=== PATIENT | male | born 2000 | race Caucasian/White ===

== ENCOUNTER → 2022-12-19 | Outpatient (CLI) | payer BC, SELFPAY ==
[2022-12-19 15:16] LABS: Absolute Lymphocyte Count 2.04 X10^3/uL (0.83-4.51); Absolute Neutrophil Count 8.1 X10^3/uL (2.0-7.7); Basophil# 0.07 X10^3/uL; Basophil% 0.6 % (0-1); Hematocrit 43.8 % (40-54); Hemoglobin 14.7 g/dL (13.0-16.5); Lymphocyte # 2.04 X10^3/ul (0.83-4.51); Lymphocyte % 18.8 % (19-41); Mean Corp Hgb Conc 33.6 g/dL (32-36); Mean Corpuscular Hgb 30.4 pg (27.0-32.0); Mean Corpuscular Volume 90.5 fL (80-94); Mean Platelet Vol. 12.9 fl (6.2-12.0); Monocyte# 0.61 X10^3/uL; Monocyte% 5.6 % (0-10); NRBC Flagged by Analyzer 0 % (0-5); Neutrophil % 74.5 % (47-70); POSITIVE COUNT YES; Red Blood Count 4.84 M/mm3 (4.6-6.2); White Blood Count 10.9 K/mm3 (4.4-11.0)
[2022-12-19 15:19] LABS: ALB/GLOB Ratio 1.2 RATIO (0.9-2.4); AST(SGOT) 27 U/L (15-37); Alanine Aminotransfer ALT/SGPT 27 U/L (16-61); Albumin, Serum 4.2 g/dL (3.2-5.0); Alkaline Phosphatase 54 U/L (45-117); Anion Gap 8 (5-15); BUN 15 mg/dL (7-18); BUN/Creat Ratio 15.1 RATIO (10-20); Calcium,Total 9.1 mg/dL (8.5-10.1); Chloride 105 mmol/L (98-107); Creatinine, Serum 0.99 mg/dL (0.70-1.30); EST Glomerular Filtration Rate 99 mL/min (>60); Est Glom Filt Rate - Afr Amer 120 mL/min (>60); Globulin 3.5 g/dL (2.2-4.2); Glucose 95 mg/dL (74-106); Potassium 4.2 mmol/L (3.5-5.1); Protein, Total 7.7 g/dL (6.4-8.2); Sodium Level 140 mmol/L (136-145)
[2022-12-19 16:06] LABS: Platelet Estimate SLT DEC (ADEQ)
== END | disposition home or self-care (01) ==
PROVIDERS: Visit Provider Nurse Practitioner Family
DX: R53.82 Chronic fatigue, unspecified (principal); R14.0 Abdominal distension (gaseous); R51.9 Headache, unspecified; M54.2 Cervicalgia; R68.89 Other general symptoms and signs
CPT/HCPCS: 80053; 84402; 84403; 85025; 86644; 86645; 86665

== ENCOUNTER → 2023-02-07 | Outpatient (CLI) | payer BC, SELFPAY ==
[2023-02-07 12:49] LABS: Absolute Lymphocyte Count 2.72 X10^3/uL (0.83-4.51); Absolute Neutrophil Count 4.4 X10^3/uL (2.0-7.7); Basophil# 0.07 X10^3/uL; Basophil% 0.9 % (0-1); Hematocrit 49.4 % (40-54); Hemoglobin 16.2 g/dL (13.0-16.5); Lymphocyte # 2.72 X10^3/ul (0.83-4.51); Lymphocyte % 34.3 % (19-41); Mean Corp Hgb Conc 32.8 g/dL (32-36); Mean Corpuscular Hgb 30.1 pg (27.0-32.0); Mean Corpuscular Volume 91.7 fL (80-94); Monocyte# 0.74 X10^3/uL; Monocyte% 9.3 % (0-10); NRBC Flagged by Analyzer 0 % (0-5); Neutrophil # 4.37 X10^3/uL (2.7-7.7); Neutrophil % 55.1 % (47-70); Platelet Count 236 K/mm3 (150-450); RBC Distribution Width CV 13.1 % (11.6-14.6); RBC Distribution Width SD 43.8 fl (35.1-43.9); Red Blood Count 5.39 M/mm3 (4.6-6.2); White Blood Count 7.9 K/mm3 (4.4-11.0)
[2023-02-07 13:29] LABS: ALB/GLOB Ratio 1.2 RATIO (0.9-2.4); AST(SGOT) 16 U/L (15-37); Alanine Aminotransfer ALT/SGPT 28 U/L (16-61); Albumin, Serum 4.2 g/dL (3.2-5.0); Alkaline Phosphatase 69 U/L (45-117); Anion Gap 6 (5-15); BUN 17 mg/dL (7-18); BUN/Creat Ratio 17.4 RATIO (10-20); Calcium,Total 9.8 mg/dL (8.5-10.1); Chloride 107 mmol/L (98-107); Creatinine, Serum 0.98 mg/dL (0.70-1.30); EST Glomerular Filtration Rate 101 mL/min (>60); Est Glom Filt Rate - Afr Amer 122 mL/min (>60); Ferritin 65 ng/mL (26-388); Globulin 3.5 g/dL (2.2-4.2); Glucose 82 mg/dL (74-106); Protein, Total 7.7 g/dL (6.4-8.2); Sodium Level 140 mmol/L (136-145)
[2023-02-16 22:10] LABS: Testosterone, % Free 4.09 % (1.50-4.20); Testosterone, Free 24.09 ng/dL (5.00-21.00); Testosterone, Total 589 ng/dL (264-916)
== END | disposition home or self-care (01) ==
LOC: LABSPEC 12:37
DX: A68.1 Tick-borne relapsing fever (principal); R53.82 Chronic fatigue, unspecified; B60.00 Babesiosis, unspecified; R51.9 Headache, unspecified; R53.81 Other malaise; R06.02 Shortness of breath
CPT/HCPCS: 80053; 82627; 82728; 84402; 84403; 85025; 82626

== ENCOUNTER → 2023-02-13 | Outpatient (CLI) | payer BC, SELFPAY ==
--- NOTE | 2023-02-13 09:00 | EKG12_ITS ---
Test Reason : PALPS Blood Pressure : / mmHG Vent. Rate : 059 BPM Atrial Rate : 059 BPM P-R Int : 126 ms QRS Dur : 084 ms QT Int : 358 ms P-R-T Axes : 015 067 054 degrees QTc Int : 354 ms Sinus bradycardia Otherwise normal ECG Confirmed by RERE BROWNE, MOISES ([id number]), assistant film editor VARUN ORTIZ ([id number]) on 02/14/2023 5:57:32 AM Referred By: EYAL REYES Confirmed By:MOISES JERNIGAN MD
== END | disposition home or self-care (01) ==
LOC: PSN 08:54
DX: R00.2 Palpitations (principal)
CPT/HCPCS: 93005

== ENCOUNTER 2023-03-05 16:01 | Emergency (ER) | payer BC, SELFPAY ==
[2023-03-05 16:03] VITALS: BP 121/89; PULSE 70; RESP 16; TEMP 36.7; O2SAT 100; BMI 28.2
--- NOTE | 2023-03-05 18:20 | EX.ED.GUMALE ---
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 Patient states that he has had right lower back pain that is been muscle skeletal over the last week. Patient states that the lower back hurts worse with ambulation, twisting, as well as worse in the morning. Patient states that last evening around 5 PM, his right testicle started hurting. He denies any difficulty urinating. Patient denies any nausea or vomiting. Patient's pain is on his left lower back, pain to the right testicle. No fever or chills. PFSH <VIDHYA Pérez - Last Filed: 03/05/23 20:03> [facility] Medical History (Updated 03/05/23 @ 20:03 by VIDHYA Pérez) Tick-borne disease Home Medications azithromycin 250 mg tablet 250 mg PO DAILY 03/05/23 [History Last Taken Unknown] Allergy/AdvReac Type Severity Reaction Status Date / Time No Known Allergies Allergy Verified 03/05/23 16:02 Social History (Updated 03/05/23 @ 17:28 by Rita Lu) household members: family housing: house Smoking Status: Never smoker ROS <VIDHYA Pérez - Last Filed: 03/05/23 20:03> ROS ED ROS Narrative Constitutional: Negative for fever, chills, weight loss, weakness Eyes: Negative for vision loss, vision change, double vision ENT: Negative for any sore throat, ear pain, congestion Cardiovascular: Negative for any chest pain, tightness, palpitations Respiratory: Negative for any cough, sputum production, hemoptysis, dyspnea, dyspnea on exertion, orthopnea Gastrointestinal: Negative for any abdominal pain, nausea, vomiting, diarrhea, constipation, blood in stool, blood in vomit : Negative for any urinary frequency, dysuria, retention, blood in urine. Positive for right testicular pain Muscle skeletal: Negative for any myalgias, arthralgias, neck pain, positive for left lower back pain Neurological: Negative for any headache, syncope, paresthesias, dizziness Skin: Negative for any rashes, lumps, itching, abrasions, lacerations Psychiatric: Negative for any depression, anxiety, stress, suicidal ideation, homicidal ideation Hematologic: Negative for any easy bruising, excessive bruising, easy bleeding Allergies: Negative for any eczema, hives, rash EXAM <VIDHYA Pérez - Last Filed: 03/05/23 20:03> Physical Exam Const Vital Signs: 03/05/23 16:03 03/05/23 20:14 Temperature 98.0 F Temperature Source Temporal Pulse Rate 70 Respiratory Rate 16 16 Blood Pressure 121/89 H Blood Pressure Mean 99 Pulse Ox 100 Oxygen Delivery Method Room Air <Dr. Joe Sosa MD - Last Filed: 03/05/23 20:41> Physical Exam Const Vital Signs: 03/05/23 16:03 03/05/23 20:14 Temperature 98.0 F Temperature Source Temporal Pulse Rate 70 Respiratory Rate 16 16 Blood Pressure 121/89 H Blood Pressure Mean 99 Pulse Ox 100 Oxygen Delivery Method Room Air MDM <VIDHYA Pérez - Last Filed: 03/05/23 20:03> MDM MDM Narrative Medical decision making narrative: Vital signs reviewed. HEET: Head normocephalic atraumatic, TMs clear bilaterally. Posterior pharynx is clear, moist mucous membranes. Nares clear bilaterally. Neck: Supple with no lymphadenopathy or tenderness. No signs of meningismus. Cardiac: Regular rate and rhythm no murmurs gallops or rubs, equal peripheral pulses bilaterally. Respiratory: Lungs clear to auscultation bilaterally. No chest tenderness. Abdomen: Soft, nontender, nondistended. No abdominal bruit or pulsatile masses. No hepatosplenomegaly Extremities: No peripheral edema, no signs of gross trauma or deformity. Active full range of motion of all extremities. Neuro: Cranial nerves II through XII intact, no focal neurological deficits. Skin: Clean dry and intact with no rash, purpura, petechiae, vesicles or pustules. Backs/flank: No CVA tenderness, no midline spinal tenderness, no deformity. Psych: Normal mood and affect. No SI, HI or acute psychosis. Testicular examination: Patient testicle exam was unremarkable, slight discomfort to the distal testicle, no pain along the epididymis. Patient has no unilateral swelling, no redness, no signs of cellulitis. Lab Data Labs: Laboratory Results - last 24 hr 03/05/23 18:34 Urine Color Yellow Urine Clarity Clear Urine pH 6.0 Ur Specific [place] 1.015 Urine Protein 15 H Urine Glucose (UA) Normal Urine Ketones 5 H Urine Occult Blood Negative Urine Nitrite Negative Urine Bilirubin Negative Urine Urobilinogen Normal Ur Leukocyte Esterase Negative Urine RBC 0 SEEN Urine WBC 0 SEEN Ur Squamous Epith Cells 0 SEEN Urine Bacteria 0 SEEN Urine Mucus 0 SEEN Radiography Diagnostic Testing: Clinical Impression(s) from Imaging Studies Testicular Ultrasound 03/05/23 18:24 IMPRESSION: No acute findings in the scrotum. Electronically Signed: Luis Alfredo Cameron MD at 19:41 EST , Treatment and Re-Evaluation Narrative: Patient appears generally well, patient appears nontoxic, vital signs are stable. Presenting to the emergency department left lower back pain, right testicular pain. Differential diagnosis includes testicular torsion, epididymitis, lumbar strain. Patient will receive a urinalysis concerning for any mucus or infection, patient will receive ultrasound with atrial flow of the testicle concerning for any emergent surgical emergency. Patient's urinalysis was negative for any infection, patient testicular ultrasound shows no abnormality within the scrotum. At this time, patient be diagnosed with lumbar strain. The physical examination showed no significant findings with the physical examination of the testicles, there is no evidence of any epididymitis, STD, lesions. There is no evidence of any torsion. At this time, patient continue take ibuprofen at home. Instructed to ice and elevate. All questions were answered, patient stable for discharge. <Dr. Joe Sosa MD - Last Filed: 03/05/23 20:41> [facility] Narrative Medical decision making narrative: Vital signs reviewed. HEET: Head normocephalic atraumatic, TMs clear bilaterally. Posterior pharynx is clear, moist mucous membranes. Nares clear bilaterally. Neck: Supple with no lymphadenopathy or tenderness. No signs of meningismus. Cardiac: Regular rate and rhythm no murmurs gallops or rubs, equal peripheral pulses bilaterally. Respiratory: Lungs clear to auscultation bilaterally. No chest tenderness. Abdomen: Soft, nontender, nondistended. No abdominal bruit or pulsatile masses. No hepatosplenomegaly Extremities: No peripheral edema, no signs of gross trauma or deformity. Active full range of motion of all extremities. Neuro: Cranial nerves II through XII intact, no focal neurological deficits. Skin: Clean dry and intact with no rash, purpura, petechiae, vesicles or pustules. Backs/flank: No CVA tenderness, no midline spinal tenderness, no deformity. Psych: Normal mood and affect. No SI, HI or acute psychosis. Testicular examination: Patient testicle exam was unremarkable, slight discomfort to the distal testicle, no pain along the epididymis. Patient has no unilateral swelling, no redness, no signs of cellulitis. I have personally performed a face to face assessment of the patient and have reviewed the ALINA Note. I performed a substantive portion of the visit including all aspects of the following. My ervin findings include: History is 27-year-old male complaining of right testicular discomfort since yesterday. No fall injury or trauma. No redness. No dysuria. No prior surgery. Exam is [Well-appearing 22-year-old male. Vital signs stable afebrile. H EENT exam unremarkable. Neck nontender. Lungs clear to auscultation bilateral. Heart regular rhythm no murmurs. Abdomen soft nontender normal bowel sounds no peritoneal signs. No obvious hernia. External exam normal. Circumcised. Both testicles are nontender. Nonenlarged. There is no swelling of either hemiscrotum. There is no necrotic tissue. There is no cellulitis. I do not feel a hernia or mass on either side. There is no orchitis or epididymitis. Moving all 4 extremities. Nontender no edema. Neurologic exam normal.] Medical Decision Making [23-year-old with minimal testicular pain subjectively benign exam. Ultrasound unremarkable. UA negative. Motrin for pain. Discharged home.] Other additions or changes: [None] Lab Data Attestation: I reviewed the patient's lab results. Lab results narrative: UA normal. Testicular ultrasound normal. Labs: Laboratory Results - last 24 hr 03/05/23 18:34 Urine Color Yellow Urine Clarity Clear Urine pH 6.0 Ur Specific [place] 1.015 Urine Protein 15 H Urine Glucose (UA) Normal Urine Ketones 5 H Urine Occult Blood Negative Urine Nitrite Negative Urine Bilirubin Negative Urine Urobilinogen Normal Ur Leukocyte Esterase Negative Urine RBC 0 SEEN Urine WBC 0 SEEN Ur Squamous Epith Cells 0 SEEN Urine Bacteria 0 SEEN Urine Mucus 0 SEEN Radiography Diagnostic Testing: Clinical Impression(s) from Imaging Studies Testicular Ultrasound 03/05/23 18:24 IMPRESSION: No acute findings in the scrotum. Electronically Signed: Luis Alfredo Cameron MD at 19:41 EST , Discharge Plan Triage Chief Complaint: Male Pain/Injury ED Midlevel Provider: Chriss Ruth ED Provider: Joe Sosa Dx/Rx/DC Orders Clinical Impression: Pain in right testicle, Acute lumbar myofascial strain Instructions: Understanding Lumbosacral Strain, ED Testicular Pain, Unclear Cause Prescriptions: No Action azithromycin 250 mg tablet 250 mg PO DAILY Primary Care Provider: Care Physician,No Primary Referrals: Care Physician,No Primary [Primary Care Provider] - Activity Restrictions/Additional Instructions: Please follow-up outpatient. Continue take ibuprofen, Tylenol. Perform gentle stretching, ice and heat. Disposition Disposition: Home, Self Care Discharge Date/Time: 03/05/23 20:15
--- NOTE | 2023-03-05 18:24 | US_ITS ---
EXAM: US SCROTUM CLINICAL INDICATION: testicular pain TECHNIQUE: Realtime ultrasound of the testicles was performed with grayscale and Color Doppler analysis. COMPARISON: No relevant prior studies available. FINDINGS: RIGHT TESTICLE: The right testicle measures 3.4 x 4.6 x 2.3 cm. Normal in size and echotexture. No focal lesion. Normal blood flow is present. LEFT TESTICLE: The left testicle measures 3.0 x 4.6 x 2.5 cm. Normal in size and echotexture. No focal lesion. Normal blood flow is present. EPIDIDYMIDES: The right epididymal head measures 1.0 x 0.9 x 1.1 cm. The left epididymal head measures 0.8 x 0.8 x 1.0 cm. Normal color Doppler flow pattern in the epididymis. SCROTUM: Unremarkable. No hydrocele. No varicocele. US/Testicular with Arterial Flow IMPRESSION: No acute findings in the scrotum. Electronically Signed: Luis Alfredo Cameron MD at 19:41 EST ,
[2023-03-05 18:47] LABS: Bacteria 0 SEEN /hpf (None Seen); Color, Urine Yellow (Yellow); Glucose, Dipstick Normal (Normal); Ketone-Dipstick 5 mg/dl (Negative); Leukocyte Esterase-Dipstick Negative /ul (Negative); Mucous, Urine 0 SEEN /hpf (<or=2+); Nitrite-Dipstick Negative (Negative); Occult Blood-Urine Negative /ul (Negative); Protein-Dipstick 15 mg/dl (Negative); Red Blood Cells-Urine 0 SEEN /hpf (0-5); Specific Gravity, Urine 1.015 (1.002-1.030); Squamous Epithelial Cells - UA 0 SEEN /hpf (0-5); Urine Bilirubin Dipstick Negative (Negative); Urine Clarity Clear (Clear); Urine Urobilinogen Normal (Normal); White Blood Cells 0 SEEN /hpf (0-5)
[2023-03-05 20:14] VITALS: RESP 16
== END 2023-03-05 20:15 | disposition home or self-care (01) ==
PROVIDERS: Nurse Practitioner; Emergency Provider Emergency Medicine; Visit Provider Emergency Medicine
DX: S39.012A Strain of muscle, fascia and tendon of lower back, initial encounter (principal); N50.811 Right testicular pain; X58.XXXA Exposure to other specified factors, initial encounter
CPT/HCPCS: 76870; 81001; 93976; 99282

== ENCOUNTER 2023-03-19 17:16 | Outpatient (RCR) | payer SELFPAY ==
--- NOTE | 2023-05-17 12:46 | HP.PT.NRP ---
Patient Information Patient Information: JOANA WAITE was seen in my office for initial evaluation on . The following Plan of Care was established for this patient: Anticipated Interventions Patient/Client Instruction: Educate patient on: Condition, Plan of Care, Risk Factors and Benefits of Fitness Program For the Purpose of:: To improve decision making, To facilitate caregiver knowledge, To improve self management, To prevent re-injury and To improve ability to perform tasks related to life management Therapeutic Exercise to Include: Strength training, Coordination, Body mechanics and Postural training For the Purpose of:: To decrease pain, To increase ROM, To improve nutrient delivery to tissue, To increase oxygenation perfusion, To improve muscle performance and motor function, To improve health of tissue, To decrease soft tissue restriction and To increase flexibility/ROM Manual Therapy Techniques to Include: Functional dry needling and Soft tissue mobilization For the Purpose of:: To decrease pain, To increase ROM and To improve nutrient delivery to tissue Last Seen Last Seen: This patient was last seen in our office 03/19/23. Pertinent comments regarding their Physical therapy will appear below: Pt. was seen for self pay DN. Pt. has not been seen in s~2 months and will be DC from PT at this point in time. At this point I will be discontinuing this patient from physical therapy. I would be happy to see this patient again in the future if found appropriate by the physician. Thank you! Sunday Guidry, STEPHANIET Balance/Gait/Functional tests Balance/Special Test Scores Oswestry Low Back Score: 15
== END 2023-03-19 19:00 | disposition home or self-care (01) ==
LOC: PT 17:16
DX: Z00.00 Encounter for general adult medical examination without abnormal findings (principal)

== ENCOUNTER → 2023-06-06 | Outpatient (CLI) | payer BC, SELFPAY ==
[2023-06-06 14:45] LABS: Absolute Lymphocyte Count 1.79 X10^3/uL (0.83-4.51); Absolute Neutrophil Count 5.9 X10^3/uL (2.0-7.7); Basophil# 0.05 X10^3/uL; Basophil% 0.6 % (0-1); Hematocrit 43.3 % (40-54); Hemoglobin 14.6 g/dL (13.0-16.5); Lymphocyte # 1.79 X10^3/ul (0.83-4.51); Lymphocyte % 20.8 % (19-41); Mean Corp Hgb Conc 33.7 g/dL (32-36); Mean Corpuscular Hgb 30.4 pg (27.0-32.0); Mean Platelet Vol. 12.1 fl (6.2-12.0); Monocyte# 0.82 X10^3/uL; Monocyte% 9.5 % (0-10); NRBC Flagged by Analyzer 0 % (0-5); Neutrophil # 5.89 X10^3/uL (2.7-7.7); Neutrophil % 68.6 % (47-70); Platelet Count 246 K/mm3 (150-450); RBC Distribution Width CV 12.7 % (11.6-14.6); RBC Distribution Width SD 41.4 fl (35.1-43.9); Red Blood Count 4.81 M/mm3 (4.6-6.2); White Blood Count 8.6 K/mm3 (4.4-11.0)
[2023-06-06 15:08] LABS: ALB/GLOB Ratio 1.1 RATIO (0.9-2.4); AST(SGOT) 19 U/L (15-37); Alanine Aminotransfer ALT/SGPT 26 U/L (16-61); Alkaline Phosphatase 61 U/L (45-117); Anion Gap 5 (5-15); BUN 16 mg/dL (7-18); BUN/Creat Ratio 19.3 RATIO (10-20); Calcium,Total 9.2 mg/dL (8.5-10.1); Chloride 107 mmol/L (98-107); Creatinine, Serum 0.83 mg/dL (0.70-1.30); EST Glomerular Filtration Rate 122 mL/min (>60); Est Glom Filt Rate - Afr Amer 147 mL/min (>60); Globulin 3.5 g/dL (2.2-4.2); Glucose 88 mg/dL (74-106); Luteinizing Hormone 3.6 mIU/mL; Potassium 4.2 mmol/L (3.5-5.1); Prolactin 8.2 ng/mL; Protein, Total 7.5 g/dL (6.4-8.2); Sodium Level 138 mmol/L (136-145)
[2023-06-14 01:06] LABS: Estrogen, Total, Serum 120 pg/mL (56-213); Testosterone, % Free 3.56 % (1.50-4.20); Testosterone, Free 19.26 ng/dL (5.00-21.00); Testosterone, Total 541 ng/dL (264-916)
== END | disposition home or self-care (01) ==
PROVIDERS: Referring Provider Nurse Practitioner Family; Visit Provider Nurse Practitioner Family
DX: R53.82 Chronic fatigue, unspecified (principal); M54.2 Cervicalgia; R51.9 Headache, unspecified; R53.81 Other malaise; R14.0 Abdominal distension (gaseous); B60.00 Babesiosis, unspecified; A68.9 Relapsing fever, unspecified; R42 Dizziness and giddiness
CPT/HCPCS: 80053; 82672; 83002; 84146; 84402; 84403; 84443; 85025

== ENCOUNTER 2024-02-26 18:00 | Outpatient (RCR) | payer BC, SELFPAY ==
--- NOTE | 2024-01-04 09:23 | HP.PTEVAL_ITS ---
Patient's Visit Information Visit Information Visit Information: JOANA WAITE is a 24 year old M referred to Physical Therapy by ALLYSON Cherry with a diagnosis of Lumbar radiculopathy. Date of Evaluation: 01/04/24 Physical Therapist: Nathan Martinez, STEPHANIET, OCS, CSCS Visit Plan Frequency: 2-3x /Week Duration: 4-6 Weeks Plan: 3x/week fro 4-6 for: IE : HEP PPU 10x 8x/day, laq nerve stretch 5x daily, use back brace, towel roll sitting and avoid FW bending treat with ext bias ROM, PA mobs Lumb ar and thoracic spine, progression of remodelling ROM LB and core strength and return to funciton with body mechiancs TENS and ice as needed. Subjective Subjective: R sided LB and leg pain from back, Had x ray and has calcification. Worse in am and sleeping OK. 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 Worse with walking and sitting too long. Worse in am. No numbness or tingling constantly. Hobbies: Effecting motivation to go to gym. Can do most of his workout but avoids squat as it gets worse and tightens LB. Level 11 fitness. Basic ADLs, all I. Pain R LBP and leg: Pain Intensity (Out of 10): 1 Pain Intensity Range: 0 and 7 Comment: am is 7/10 Objective Objective: Walks stiff in pelvis and spine back to PT I. Flatr lordosis in his posture. Trasnfers gently form chair but I. Bed trasnfers I. Lumbar AROM ext max limited and R pain, flexion slow and labored and mod limtied, SB are symmetrical. AROM LE WNL except + dural B sitting, HS only to about -45 90/90 due to reproduction of R LB symptoms. strength hips 4, knees 4+ and ankles 5/5 in B LE without myotomal problems. sensation WNL to gross light touch but may have some numbness in R toes. repeated extrension improves ext ROM and diminishes pain with movement. Balance/Special Test Scores Oswestry Low Back Score: 20 Goals Goal 1:: full LB aROM without hesitation or pain Goal Time Frame: 4-6 Weeks Goal 2:: I appropriate HEP to limit future problems(posture, body mechanics, core strength, yoga astretches) Goal Time Frame: 4-6 Weeks Goal 3:: back to normal gym workout Goal Time Frame: 4-6 Weeks Goal 4:: Sleep without interruption at night Goal Time Frame: 4-6 Weeks Goal 5:: LAQ without hesitation or pain Goal Time Frame: 4-6 Weeks Rehabilitation Potential Physical Therapy Diagnosis: limtied LB ROM and flexibility and pain and limited mobility. Rehabilitation Potential: Fair Anticipated Interventions Patient/Client Instruction: Educate patient on: Condition and Risk Factors For the Purpose of:: To decrease pain, To increase ROM, To improve nutrient delivery to tissue, To improve muscle performance and motor function and To increase tolerance to activity/condition/position Therapeutic Exercise to Include: Strength training, Body mechanics, Postural training, Flexibilty training, Passive ROM, Active ROM, Dynamic Lumbar Stabilization and Eufemia Exercises For the Purpose of:: To decrease pain, To increase ROM, To improve nutrient delivery to tissue, To improve muscle performance and motor function and To increase tolerance to activity/condition/position Manual Therapy Techniques to Include: Mobilization, Passive ROM and Soft tissue mobilization For the Purpose of:: To decrease pain, To increase ROM and To improve nutrient delivery to tissue TENS: Yes Cryotherapy (ice pack, ice massage): Yes For the Purpose of:: To decrease pain and To increase ROM Text: Thank you for the opportunity to evaluate your patient. For Medicare and Medicare HMO plans, please review the plan of care and approve it. It will need to be FAXED BACK to us at [phone] for Medicare purposes. For Medicare only, by signing this I certify the plan of care. Please let me know if there are questions or concerns regarding this plan of care. Physician Signature: Date:
--- NOTE | 2024-02-26 18:24 | HP.PTDCSUM_ITS ---
Discharge Summary D/C summary: It has been my pleasure to treat JOANA WAITE referred by ALLYSON Cherry, with the diagnosis of Lumbar radiculopathy for a total of 4 visit(s). Discharge Date: 02/26/24 Please see the following information for a summary of their discharge status. Subjective Subjective: Has been extending back with pressups and stretches. and prone strengthening. Hitting gym alot and tolerating OK lifting dumbbells. seated cardio. Still cannot run on TM but has not tried in a month or so. pain is improved overall. Extension is improving. Feeling a lot looser. Morning still stiff. Feels it in R hip first thing in am but it works out. Sometimes still gets sharp spot with extending. This week up to 4/10 at work after sitting and then standing up lasting 5 minutes. Bending over is OK now. Has been super busy and unable to get in with [employer]. Gym workout is avoiding deadlifts and running and certain squats. Activities otherwise close to normal. Stretches at night. Has not been back to doctor. Pain R LBP and leg: Pain Intensity (Out of 10): 3 Overall Improvement % Improvement: 90 Objective Objective/Function: Full Lumbar AROM with only slight R sided LBP end range of full extension, otherwise good motion. Slump test slightly painful R HS area bu t much improved. Walking normal and comfortable and confident with his workout/ work and sleep. Wants to continue on his own vs more therapy which has been hard to be consistent with. Goals Goal 1:: full LB aROM without hesitation or pain Goal Progress: Goal Met Goal 2:: I appropriate HEP to limit future problems(posture, body mechanics, core strength, yoga astretches) Goal Progress: Goal Met Goal 3:: back to normal gym workout Goal Progress: Goal Met Goal 4:: Sleep without interruption at night Goal Progress: Goal Met Goal 5:: LAQ without hesitation or pain Goal Progress: Goal Met Plan Plan: d/c to HEP D/C Information Discharge Comments: Pt to continue via HEP and gym and contact doctor if pain returns. d/c sentence: If there are questions or concerns regarding this patient's physical therapy, please feel free to call me at [phone]. Thank you for the referral of this patient. Sincerely, Nathan Martinez, DPT, OCS, CSCS Balance/Gait/Functional tests Balance/Special Test Scores Oswestry Low Back Score: 3 Improvement % Improvement: 90
== END 2024-02-26 19:00 | disposition home or self-care (01) ==
LOC: PT 18:00
PROVIDERS: Referring Provider Student in an Organized Health Care Education/Training Program; Visit Provider Student in an Organized Health Care Education/Training Program
DX: M54.16 Radiculopathy, lumbar region (principal)
CPT/HCPCS: 97110; 97161; 97530

== ENCOUNTER → 2024-11-04 | Outpatient (CLI) | payer BC, SELFPAY ==
[2024-11-04 07:52] LABS: Follicle Stimulating Hormone 2.4 mIU/mL
[2024-11-09 15:07] LABS: PROLACTIN 18.2 ng/mL (3.6-31.5); Testosterone, % Free 2.81 % (1.50-4.20); Testosterone, Free 15.65 ng/dL (5.00-21.00)
== END | disposition home or self-care (01) ==
DX: E29.1 Testicular hypofunction (principal)
CPT/HCPCS: 36415; 82670; 83001; 83002; 84146; 84402; 84403